=== PATIENT | female | born 2000 | race Two or more races ===

== ENCOUNTER 2018-04-11 21:00 | Emergency (ER) | payer OTHER ==
[~2018-04-11] VITALS: Ht 157.5 cm; Wt 50.5 kg
[2018-04-11] MEDS ORDERED: CARBAMIDE PEROXIDE EAR DROPS 6.5%, 15ML ONE (21:29)
[2018-04-11] MEDS ORDERED: CARBAMIDE PEROXIDE EAR DROPS 6.5%, 15ML EACH EAR ONE (21:30)
[2018-04-11 23:53] VITALS: BP 128/72
== END 2018-04-11 23:55 | disposition home or self-care (01) ==
LOC: ED 21:53
DX: H61.23 Impacted cerumen, bilateral (principal)
CPT/HCPCS: 69209; 99282